=== PATIENT | male | born 1980 | race Two or more races ===

== ENCOUNTER → 2018-03-30 | Outpatient (CLI) | payer OTHER ==
--- NOTE | 2018-03-30 09:03 | KCIC ---
EXAM: Abdomen sonogram. HISTORY: Elevated liver function laboratory values. TECHNIQUE: Sonographic imaging of the abdomen was performed. COMPARISON: None. FINDINGS: The liver is enlarged. There is hepatic steatosis. No focal hepatic lesion is seen. The common bile duct is upper normal in caliber for patient age. The gallbladder is unremarkable. The right kidney is unremarkable. The pancreas, aorta and inferior vena cava are partially obscured due to bowel gas and body habitus. IMPRESSION: 1. Hepatomegaly and hepatic steatosis. 2. Upper normal common bile duct caliber for patient age. 3. Partially obscured midline structures due to bowel gas and body habitus. Electronically signed by: Sarah Thorne MD (03/30/2018 9:00 AM) [id number]
== END | disposition home or self-care (01) ==
LOC: KCIC US 07:59
PROVIDERS: ATTEND Family Medicine
DX: K76.0 Fatty (change of) liver, not elsewhere classified (principal); R16.0 Hepatomegaly, not elsewhere classified
CPT/HCPCS: 76705

== ENCOUNTER → 2018-05-11 | Outpatient (CLI) | payer OTHER ==
--- NOTE | 2018-05-11 08:45 | KCIC ---
Indication: Diabetic diabetes with diabetic nephropathy. TECHNIQUE: Ultrasound of the kidneys COMPARISON: None FINDINGS: No abdominal aortic aneurysm. The right kidney measures 12.8 x 4.3 x 5.7 cm (longitudinal, AP, transverse) without hydronephrosis. Bladder within normal limits. Left kidney measures 11.6 x 5.65.6 5.7 cm without hydronephrosis.Right Ureteral jet is visualized in the bladder. Left ureteral jet not seen. IMPRESSION: No hydronephrosis. Electronically signed by: Jose Vale DO (05/11/2018 8:42 AM) [facility]
== END | disposition home or self-care (01) ==
LOC: KCIC US 08:02
PROVIDERS: ATTEND Internal Medicine Nephrology
DX: E11.21 Type 2 diabetes mellitus with diabetic nephropathy (principal); I10 Essential (primary) hypertension
CPT/HCPCS: 76770